=== PATIENT | male | born 1950 | race Caucasian/White ===

== ENCOUNTER 2017-09-18 16:54 | Emergency (ER) | payer OTHER ==
[~2017-09-18] VITALS: Ht 188 cm; Wt 116.6 kg
[2017-09-18 16:58] VITALS: TEMP 36.9; Ht 188 cm; Wt 116.6 kg
[2017-09-18] MEDS ORDERED: SODIUM CHLORIDE 0.9% 500ML 500 ML IV STA (17:07)
[2017-09-18] MEDS ORDERED: SODIUM CHLORIDE 0.9% 1000ML 1,000 ML IV STA (17:07)
[2017-09-18] MEDS ORDERED: GLIM4TAB2 PO (17:42)
[2017-09-18] MEDS ORDERED: IPRASOL4 INH (17:42)
[2017-09-18] MEDS ORDERED: ISOS60TA25 PO (17:42)
[2017-09-18] MEDS ORDERED: FLUO40CA8 PO (17:42)
[2017-09-18] MEDS ORDERED: LINA1TAB PO (17:42)
[2017-09-18] MEDS ORDERED: PANT40TA PO (17:42)
[2017-09-18] MEDS ORDERED: METO25TA56 PO (17:42)
[2017-09-18] MEDS ORDERED: SITA100T3 PO (17:42)
[2017-09-18] MEDS ORDERED: LPT/40 PO (17:42)
[2017-09-18] MEDS ORDERED: CLOP1TAB15 PO (17:42)
[2017-09-18 17:43] LABS: BASO % 0.2 %; BASO ABS # 0.02 K/uL (0-0.2); COMPLETE YES; EOS % 2.4 %; IG% 0.3 %; LYMPH % 25.7 %; LYMPH ABS # 2.22 K/uL (1.2-3.4); MEAN CELL VOLUME 86.8 fL (80-100); MEAN CORPUSCULAR HEMOGLOBIN 29.5 pg (25-34); MEAN PLATELET VOLUME 10.3 fL (7.4-10.4); MONO % 8.3 %; NEUT % 63.1 %; PLATELET COUNT 179 K/uL (130-400); RED BLOOD COUNT 4.03 M/uL (4.7-6.1); WHITE BLOOD COUNT 8.64 K/uL (4.8-10.8)
[2017-09-18 17:52] LABS: MANUAL MICROSCOPIC REQUIRED? NO; REVIEW REQ? YES; URINE APPEARANCE CLEAR (CLEAR); URINE COLOR DK YELLOW; URINE EPITHELIAL CELL AUTO >30 /lpf (0-5); URINE NITRITE NEG (NEG); URINE SPECIFIC GRAVITY 1.042 (1.000-1.030); UROBILINOGEN NEG (NEG); ZZUR CULT IF INDIC CLEAN CATCH NO
[2017-09-18 17:54] LABS: URINE BILIRUBIN NEG (NEG)
[2017-09-18 18:05] LABS: BUN/CREATININE RATIO 8.1 (10-20); CREATININE 1.42 mg/dl (0.60-1.40); MAGNESIUM 1.7 mg/dl (1.8-2.4); POTASSIUM 3.6 mmol/L (3.5-5.1)
--- NOTE | 2017-09-18 18:05 | DIAGNOSTIC IMAGING REPORT ---
ABDOMEN 2VIEW W/PA CHEST RTN CLINICAL HISTORY: diarrhea, weight loss COMPARISON STUDY: No previous studies for comparison. FINDINGS: The heart is borderline enlarged. There is age-indeterminate interstitial thickening. There is no lobar consolidation. There is no free intraperitoneal air. Erect and supine views the abdomen reveal mildly dilated small bowel loops with scattered air-fluid levels. There is gas present within the colon. No transition zones are visualized on conventional radiographic imaging. IMPRESSION: 1. No evidence of free intraperitoneal air 2. Mildly dilated small bowel loops. As no transition zone is visualized, the findings likely represent an ileus or enteritis. An early or partial small bowel obstruction can however not be excluded. Clinical follow-up is recommended Electronically signed by: Drake Laws M.D. 09/18/2017 6:04 PM Dictated Date/Time: 09/18/2017 6:02 PM
[2017-09-18 21:39] VITALS: BP 124/73; PULSE 88; O2SAT 98
--- NOTE | 2017-09-18 21:43 | EMERGENCY ROOM VISIT NOTE ---
History Report prepared by Adam: Tiffanie Perez Under the Supervision of: Dr. Radha Araujo M.D. First contact with patient: 17:02 Chief Complaint: DIARRHEA Stated Complaint: DIARRHEA History of Present Illness The patient is a 66 year old male who presents to the Emergency Room with complaints of constant diarrhea starting a month ago. The patient's friend reports that she hasn't seen him for 5 days and he looks worse than before. She reports that he has been to [facility] twice and nothing has helped. She states that she has noticed that he has lost 20-30 lbs in the last week. She reports that the patient has yellow diarrhea, chills, is shaky, and has a loss of appetite. She denies the patient having a cough, runny nose, vomiting, and him being a heavy alcohol drinker. The patient complains of a fever and abdominal pain. The patient denies hematochezia and antibiotic use recently. The patient notes that he is unsure if [facility] tested his stool. He notes that he has had a colonoscopy, but does not know what it showed. Source of History: patient Onset: a month ago Position: other (global) Quality: other (global) Timing: constant Associated Symptoms: + fevers, + chills, + abdominal pain, No cough, No vomiting, No hematochezia Note: The patient complains of shaking and loss of appetite. The patient denies a runny nose. Review of Systems See HPI for pertinent positives & negatives. A total of 10 systems reviewed and were otherwise negative. Past Medical & Surgical Medical Problems: (1) No Known Active Medical Problems Family History Patient reports no known family medical history. Social History Smoking Status: Current Every Day Smoker Alcohol Use: none Marital Status: single Housing Status: lives alone Current/Historical Medications Scheduled Atorvastatin (Lipitor), 40 MG PO DAILY Clopidogrel (Plavix), 75 MG PO DAILY Fluoxetine (Prozac), 40 MG PO DAILY Glimepiride (Glimepiride), 4 MG PO DAILY Isosorbide Mononitrate Ext Rel (Imdur Ext Rel), 60 MG PO DAILY Linagliptin (Tradjenta), 5 MG PO DAILY Metoprolol Tartrate (Lopressor) (Lopressor), 25 MG PO BID Pantoprazole (Protonix), 40 MG PO DAILY Sitagliptin Phosphate (Januvia), 100 MG PO DAILY Scheduled PRN Ipratropium-Albuterol (Duoneb), 1 TREATMENT INH Q4H PRN for SOB/Wheezing Allergies Coded Allergies: No Known Allergies (Unverified , 09/18/17) Physical Exam Vital Signs Date Time Temp Pulse Resp B/P (MAP) Pulse Ox O2 Delivery O2 Flow Rate FiO2 09/18/17 21:39 88 16 124/73 98 09/18/17 20:17 75 16 151/83 98 Room Air 09/18/17 18:37 54 16 141/78 94 Room Air 09/18/17 17:36 57 09/18/17 16:58 36.9 61 20 180/102 97 Room Air Physical Exam Vital signs reviewed. General: Elderly, chronically ill-appearing, in no significant distress. HEENT: No scleral icterus, PERRLA, neck supple. Atraumatic. Cardiovascular: Regular rate and rhythm, no extra sounds. Pulmonary: Clear to auscultation bilaterally, normal work of breathing. Abdomen: Soft, mild diffuse tenderness, nondistended, positive bowel sounds. No rebound or guarding. Obese abdomen. Musculoskeletal: Atraumatic, no peripheral edema. No CVA tenderness. Neurologic: Patient awake alert and oriented x 3, full strength in all 4 extremities. Cranial nerves 2 through 12 grossly intact. Skin: Warm, dry, no rash. Questioned slight jaundice. Medical Decision & Procedures ER Provider Diagnostic Interpretation: Radiology results as stated below per my review and radiologist interpretation: ABDOMEN 2VIEW W/PA CHEST RTN CLINICAL HISTORY: diarrhea, weight loss COMPARISON STUDY: No previous studies for comparison. FINDINGS: The heart is borderline enlarged. There is age-indeterminate interstitial thickening. There is no lobar consolidation. There is no free intraperitoneal air. Erect and supine views the abdomen reveal mildly dilated small bowel loops with scattered air-fluid levels. There is gas present within the colon. No transition zones are visualized on conventional radiographic imaging. IMPRESSION: 1. No evidence of free intraperitoneal air 2. Mildly dilated small bowel loops. As no transition zone is visualized, the findings likely represent an ileus or enteritis. An early or partial small bowel obstruction can however not be excluded. Clinical follow-up is recommended Electronically signed by: Drake Laws M.D. 09/18/2017 6:04 PM Dictated Date/Time: 09/18/2017 6:02 PM Laboratory Results 09/18/17 17:28 Red Blood Count 4.03, Mean Corpuscular Volume 86.8, Mean Corpuscular Hemoglobin 29.5, Mean Corpuscular Hemoglobin Concent 34.0, Mean Platelet Volume 10.3, Neutrophils (%) (Auto) 63.1, Lymphocytes (%) (Auto) 25.7, Monocytes (%) (Auto) 8.3, Eosinophils (%) (Auto) 2.4, Basophils (%) (Auto) 0.2, Neutrophils # (Auto) 5.44, Lymphocytes # (Auto) 2.22, Monocytes # (Auto) 0.72, Eosinophils # (Auto) 0.21, Basophils # (Auto) 0.02 09/18/17 17:28 Test 09/18/17 17:28 09/18/17 17:33 White Blood Count 8.64 K/uL (4.8-10.8) Red Blood Count 4.03 M/uL (4.7-6.1) Hemoglobin 11.9 g/dL (14.0-18.0) Hematocrit 35.0 % (42-52) Mean Corpuscular Volume 86.8 fL (80-100) Mean Corpuscular Hemoglobin 29.5 pg (25-34) Mean Corpuscular Hemoglobin Concent 34.0 g/dl (32-36) Platelet Count 179 K/uL (130-400) Mean Platelet Volume 10.3 fL (7.4-10.4) Neutrophils (%) (Auto) 63.1 % Lymphocytes (%) (Auto) 25.7 % Monocytes (%) (Auto) 8.3 % Eosinophils (%) (Auto) 2.4 % Basophils (%) (Auto) 0.2 % Neutrophils # (Auto) 5.44 K/uL (1.4-6.5) Lymphocytes # (Auto) 2.22 K/uL (1.2-3.4) Monocytes # (Auto) 0.72 K/uL (0.11-0.59) Eosinophils # (Auto) 0.21 K/uL (0-0.5) Basophils # (Auto) 0.02 K/uL (0-0.2) RDW Standard Deviation 46.8 fL (36.4-46.3) RDW Coefficient of Variation 14.7 % (11.5-14.5) Immature Granulocyte % (Auto) 0.3 % Immature Granulocyte # (Auto) 0.03 K/uL (0.00-0.02) Anion Gap 7.0 mmol/L (3-11) Est Creatinine Clear Calc Drug Dose 71.3 ml/min Estimated GFR () 60.1 Estimated GFR (Non- 51.8 BUN/Creatinine Ratio 8.1 (10-20) Calcium Level 9.0 mg/dl (8.5-10.1) Magnesium Level 1.7 mg/dl (1.8-2.4) Total Bilirubin 0.7 mg/dl (0.2-1) Direct Bilirubin 0.2 mg/dl (0-0.2) Aspartate Amino Transf (AST/SGOT) 18 U/L (15-37) Alanine Aminotransferase (ALT/SGPT) 27 U/L (12-78) Alkaline Phosphatase 82 U/L (45-117) Total Protein 6.7 gm/dl (6.4-8.2) Albumin 3.4 gm/dl (3.4-5.0) Lipase 106 U/L (73-393) Urine Color DK YELLOW Urine Appearance CLEAR (CLEAR) Urine pH 5.0 (4.5-7.5) Urine Specific [place] 1.042 (1.000-1.030) Urine Protein 3+ (NEG) Urine Glucose (UA) NEG (NEG) Urine Ketones TRACE (NEG) Urine Occult Blood NEG (NEG) Urine Nitrite NEG (NEG) Urine Bilirubin NEG (NEG) Urine Urobilinogen NEG (NEG) Urine Leukocyte Esterase TRACE (NEG) Urine WBC (Auto) 1-5 /hpf (0-5) Urine RBC (Auto) 0-4 /hpf (0-4) Urine Hyaline Casts (Auto) 1-5 /lpf (0-5) Urine Epithelial Cells (Auto) >30 /lpf (0-5) Urine Bacteria (Auto) NEG (NEG) Urine Pathogenic Casts /lpf (0) Laboratory results per my review. Medications Administered Medications (Trade) Dose Ordered Sig/Asmita Route Start Time Stop Time Status Last Admin Dose Admin Sodium Chloride 500 ml @ 999 mls/hr Q31M STAT IV 09/18/17 17:07 09/18/17 17:37 DC 09/18/17 17:33 999 MLS/HR Sodium Chloride 1,000 ml @ 200 mls/hr Q5H STAT IV 09/18/17 17:07 09/18/17 21:57 DC 09/18/17 17:07 200 MLS/HR ECG Indication: abdominal pain Rate (beats per minute): 60 Rhythm: normal sinus Findings: no acute ischemic change, left axis deviation, no ectopy, other ( previous septal infarct) ED Course 1705: Past medical records reviewed. The patient was evaluated in room B6. A complete history and physical examination was performed. 1706: Ordered NSS 1000 ml @ 200 mls/hr IV, NSS 500 ml @ 999 mls/hr IV. 1910: I reviewed the patient's records from [facility]. On August [address] scan and was admitted for acute kidney injury. He had a creatine of 1.83. 2000: I reevaluated the patient and he is doing well. 2130: Upon reevaluation, the patient appeared to have improvement of his symptoms. I discussed findings with the patient. He verbalized agreement of the treatment plan. The patient was discharged home. Medical Decision Differential diagnoses include infectious etiology, GI bleed, C-Diff, colitis, foodborne illness, diverticulitis, intraabdominal mass. This patient was evaluated and appeared to be in no significant distress. IV access was obtained and laboratory work was drawn. Patient was placed on the cardiac surgeon and found to be in a normal sinus rhythm. He was hydrated with normal saline solution. Laboratory work is fairly reassuring. White blood cell count is normal, electrolytes are reasonable. Obtaining a stool sample was difficult. Records from [facility] were obtained and a recent CT scan abdomen and pelvis was reviewed. The etiology of the patient's diarrhea is unclear. C. difficile toxin was negative, stool cultures are pending. Patient was encouraged to follow-up with his primary care physician and consider gastroenterology referral. He had very little BM in the emergency department after multiple hours. He was feeling somewhat improved after IV hydration and will be discharged to the care of her friend. He will return to the ER for worsening of symptoms or any medical concerns. Medication Reconcilliation Current Medication List: was personally reviewed by me Blood Pressure Screening Patient's blood pressure: Elevated blood pressure Blood pressure disposition: Elevated BP felt to be situational Impression Primary Impression: Diarrhea Scribe Attestation The scribe's documentation has been prepared under my direction and personally reviewed by me in its entirety. I confirm that the note above accurately reflects all work, treatment, procedures, and medical decision making performed by me. Departure Information Dispostion Home / Self-Care Referrals No Doctor, Assigned (PCP) Forms HOME CARE DOCUMENTATION FORM, IMPORTANT VISIT INFORMATION, WORK / SCHOOL INSTRUCTIONS Patient Instructions My [facility] Additional Instructions Diagnosis: Diarrhea Please drink plenty of clear fluids. Follow-up with your primary care physician within the next week for reevaluation and consider gastroenterology referral. Return to the emergency department for worsening of symptoms or any medical concerns.
== END 2017-09-18 21:39 | disposition home or self-care (01) ==
LOC: C.EDB 16:56
DX: R19.7 Diarrhea, unspecified (principal); R63.4 Abnormal weight loss; R50.9 Fever, unspecified; F17.210 Nicotine dependence, cigarettes, uncomplicated; Z79.899 Other long term (current) drug therapy